=== PATIENT | male | born 1945 | race Caucasian/White ===

== ENCOUNTER → 2020-10-19 18:43 | Outpatient (CLI) | payer MEDICARE, OTHER | END | disposition home or self-care (01) | LOC: D.LABREF 18:43 | PROVIDERS: ATTEND Orthopaedic Surgery | DX: M16.11 Unilateral primary osteoarthritis, right hip (principal) ==

== ENCOUNTER 2021-01-06 08:00 | Outpatient (CLI) | payer MEDICARE, OTHER ==
[~2021-01-06 08:00] MED LIST: MULTI-DAY VITAM1 TAB PO
[2021-01-06] MEDS ORDERED: NAPROXEN SODIU220 M1 PO (13:01)
[2021-01-12 10:53] VITALS: BMI 27.4
== END 2021-01-06 08:01 | disposition home or self-care (01) ==
LOC: D.PAN 08:00
PROVIDERS: ATTEND Orthopaedic Surgery
DX: M16.11 Unilateral primary osteoarthritis, right hip (principal)

== ENCOUNTER 2021-01-12 05:45 | Observation (INO) | payer MEDICARE, OTHER ==
[2021-01-06 12:06] LABS: BILIRUBIN NEGATIVE (NEGATIVE); KETONE NEGATIVE mg/dL (< 1+); NITRITE NEGATIVE (NEGATIVE); UROBILINOGEN NORMAL mg/dL (< 2)
[2021-01-06 12:52] LABS: BASOPHILS 0.3 % (0-2); EOSINOPHILS 2.8 % (0-7); HEMATOCRIT 43.4 % (42.0-54.0); LYMPHOCYTES 16.6 % (15-50); MCH 33.2 pg (26.0-34.0); MCHC 34.6 g/dL (31.0-37.0); MCV 95.8 fL (80.0-100.0); MEAN PLATELET VOLUME 7.3 fL (7.4-10.4); MONOCYTES 8.7 % (2-11); NEUTROPHILS 71.6 % (40-80); PLATELET COUNT 279 10x3/uL (130-400); RBC 4.53 10x6/uL (4.20-6.10); RDW 12.3 % (11.5-14.5); WBC 7.2 10x3/uL (4.8-10.8)
[2021-01-06 13:02] LABS: CALC OSMOLALITY 275 mosm/kg (275-300); CARBON DIOXIDE 27.9 mmol/L (21.0-32.0); CHLORIDE - SERUM 101 mmol/L (98-107); CREATININE - SERUM 0.8 mg/dL (0.6-1.3); GLUCOSE 124 mg/dL (74-106); POTASSIUM - SERUM 3.7 mmol/L (3.5-5.1); SODIUM 137 mmol/L (136-145); UREA NITROGEN 15 mg/dL (7-18); eGFR NON AFRICAN AMERICAN > 90 mL/min (90-120)
[2021-01-06 13:20] LABS: APTT 32.8 SECONDS (22.8-39.4); INR 1.08 (0.85-1.17)
[~2021-01-12] VITALS: Ht 172.7 cm; Wt 81.8 kg
[2021-01-12] VITALS (14 sets, daily range): BP systolic 97–132; BP diastolic 53–81; Ht 172.7 cm; Wt 81.8 kg
[~2021-01-12 05:45] MED LIST changes: +NAPROXEN SODIU220 M1 PO
--- NOTE | 2021-01-12 08:05 | NUR ---
CAUTERY PAD PLACED ON LEFT THIGH. PLASMA BLADE USED ON SETTING 6/8. AQUAMANTYS USED ON SETTING 170. CAUTERY PAD LOT#[id number] EXP. 03/23/2022
--- NOTE | 2021-01-12 10:00 | NUR ---
PATIENT IN BED WITH IV INTACT. NO COMPLAINTS OR SIGNS OF DISTRESS. RIGHT HIP DRESSING CDI. TEDS AND SCDS ON AND WORKING. EDUCATED ABOUT IS. NO PROBLEMS USING IT. VS STABLE. CALL LIGHT WITHIN REACH. FAMILY AT BEDSIDE.
--- NOTE | 2021-01-12 11:46 | OP ---
PATIENT NAME: DEBBIE BURNETT MEDICAL RECORD: [id number] :49 LOCATION:D.MS [id number] ADMISSION DATE:01/12/21 SURGEON: GABRIEL VALADEZ DO DATE OF OPERATION: 01/12/2021 PROCEDURE PERFORMED: Right total hip arthroplasty. PREOPERATIVE DIAGNOSIS: Right hip osteoarthritis. POSTOPERATIVE DIAGNOSIS: Right hip osteoarthritis. INDICATIONS: Mr. Burnett is a 75-year-old male who has had right hip pain for quite some time. He has been dealing with this with injections and nonoperative treatment and he wanted something done surgically. He was aware of the risks including infection, bleeding, fracture, subsidence, leg length discrepancy, continued pain, failure of implants, need for further surgery, fracture, even and blood clots and he signed a consent. SURGEON: Gabriel Valadez DO DESCRIPTION OF PROCEDURE: The patient was taken to the operative suite, laid in the supine position, given general anesthetic and intubated. He was given 2 grams of Ancef, 80 mg of gentamicin and a gram of TXA. He was then positioned on the [place] table. The right hip was prepped and draped in sterile fashion. Timeout was performed, everyone was in agreeance with the correct side, site, patient and procedure. I then began by making an incision over the tensor fasciae sony muscle. Made careful dissection down to the fascia, took the fascia into the muscle belly posteriorly, opened up the rectus interval, took the rectus medially, the tensor fascia sony laterally and then encountered ascending branch of lateral femoral circumflex, coagulated with Aquamantys and tied it off and coagulated again and cut it. I then put Hohmann's around the capsule, the neck, opened up the capsule and tagged the capsule, put them around intracapsularly, Hohmann's around the neck. Got an x-ray to ensure I was going to make a cut in the right place. We then cut the neck, removed the head and put in the Charnley, removed the labrum and pulvinar and then reamed up to a 54, 54 cup fit well, I impacted it in and was very solidly fixed. I then impacted in the liner. I then exposed the femur and used a cookHeadMix cutter to get lateral and the canal finder and then broached up to a 17 stem, 17 stem fit very well, had no toggling and fit very well. I then trialed with a -6 neck. It was equal lengths to the left side on x-ray and then I removed the trials and dislocated the hip, removed the trials, irrigated and put in a 17 stem, it fit very well and had solidly fixed. I then impacted on the -6 dual mobility head and neck and reduced the hip. There were no fracture seen on x-ray and on AP pelvis it was equal lengths to the left side. I then irrigated with a povidone iodine solution and irrigated that out with a liter of normal saline. Then Sarath Mann, certified surgical mate first after he had done that he closed the tensor fascia sony fascia with #1 Vicryl in a [id number] running-locking stitch and then placed a patch of Kerecis over the fascia under the incision site and closed the incision with 2-0 Vicryl in inverted interrupted fashion and 4-0 Monocryl ran on the skin and placed a Prineo glue on the skin, and once it dried, Telfa and Tegaderm. Once we had done that, the patient was then taken to recovery and prior to that given gram of TXA and went to recovery in stable condition. Blood loss was approximately 300 mL. COMPLICATIONS: None. OPERATIVE REPORT [id number] DEBBIE BURNETT TRANSINT:[id number] Voice Confirmation ID: [id number] DOCUMENT ID: [id number] GABRIEL VALADEZ DO at 1146 CC: [id number] DICTATION DATE: 01/12/21856 ECCLESIASTICAL WORKER: 01/12/[address] [facility] [address] [id number]
--- NOTE | 2021-01-12 12:30 | NUR ---
PATIENT ATE REGULAR DIET WITH NO PROBLEMS. IV INTACT. NO COMPLAINTS. VS STABLE. VOIDING IN URINAL WITH NO PROBLEMS. CALL L IGHT WITHIN REACH. FAMILY AT BEDSIDE.
--- NOTE | 2021-01-12 18:10 | MORECARE ---
CASE MANAGEMENT DISCHARGE SUMMARY PATIENT: DEBBIE MOISE UNIT: [id number] ADM DATE: 01/12/21 AGE: 75 : 47 SEX: M ROOM/BED: D.2226 AUTHOR: DELBERT,DOC PHYSICIAN: REFERRING PHYSICIAN: OPAL VALADEZ DO DATE OF SERVICE: 01/12/21 Case Management Discharge Planning Summary DCP REVIEW SUMMARY ANTICIPATED D/C DATE: EXPECTED LOS : CASE STATUS: DCP Initiated INITIAL REVIEW: 01/12/2021 INITIAL REVIEWER: Stanislav Ruiz FINAL DISCHARGE DISPOSITION: : FINAL REVIEWER: FINAL REVIEW DATE: DCP Focus Questions & Answers QUESTION: ANSWER : PATIENT: DEBBIE MOISE ENCOUNTER: [id number] MEDICAL RECORD#: [id number] ADMISSION DATE: 01/12/2021 DISCHARGE DATE: ATTENDING MD: OPAL MOISE : AGE: 75 MARITAL STATUS: U DC PLAN ID: [id number] FACILITY: [facility] PRINTED ON: 01/12/21 18:10 CT All edits/amendments must be made on the electronic document DICTATION DATE: 01/12/211809 POLICY INTERN: DM 01/12/211809 RPT#: [id number] DC DATE: STATUS: ADM IN [facility] [address] [place] [address] END OF REPORT
--- NOTE | 2021-01-12 18:20 | MORECARE ---
CASE MANAGEMENT DISCHARGE SUMMARY PATIENT: DEBBIE BURNETT UNIT: [id number] ADM DATE: 01/12/21 AGE: 75 : 47 SEX: M ROOM/BED: D.2226 AUTHOR: CAL MANDUJANO PHYSICIAN: REFERRING PHYSICIAN: OPAL VALADEZ DO DATE OF SERVICE: 01/12/21 Case Management Discharge Planning Summary COMMENTS ENTERED DATE: 01/12/21 18:16 CT COMMENT TYPE: Discharge Planning REVIEWER: Stanislav Ruiz CM met with patient to complete DC plan and to evaluate needs. Patient lives independently with his spouse, Tavon Burnett, . Patient stated that his home is safe and has electricity and running water. Patient stated he manages to enter his home without difficulty. Patient stated that he has a walker, BSC, and cane at home. Patient stated that he has no problems paying for medications and he fills his medications at [facility] on [facility]. Patient stated that his primary care physician is Dr. Olivas at the [place]. At discharge, the patient plans to return home and feels this is a safe discharge. CM discussed availability of home health, rehab services, and medical equipment. Patient declined HHS, SNF, IPR, and DME but would like Outpatient PT with [facility]. MINA signed and placed in chart. Clinical Documents faxed. Patient voiced no other needs at this time and is satisfied with DC plan. Transportation provider at discharge will be with his spouse, HSU delivered, explained, signed by the patient, and placed in chart. Copy of form also left with the patient. CM will continue to follow and will assist as needed with dc plans/needs. DCP REVIEW SUMMARY ANTICIPATED D/C DATE: EXPECTED LOS : CASE STATUS: DCP Initiated INITIAL REVIEW: 01/12/2021 INITIAL REVIEWER: Stanislav Ruiz FINAL DISCHARGE DISPOSITION: : FINAL REVIEWER: FINAL REVIEW DATE: DCP Focus Questions & Answers DCP Evaluation QUESTION: ANSWER Patient's ability to cope with chronic illness : d. No chronic illness Patient gives permission to discuss discharge plans with: (name, relationship and number) : spouse, Tavon Burnett, Patient and/or caregiver agree upon recommended discharge plan? : Yes Family / Caregiver's ability to cope with chronic illness: : a. Adequate (ability to meet patient's medical needs, ensures patient attends medical appts.) Patient's current cognitive status: : *Oriented to person, place, situation, time and present Family / Caregiver's ability to cope with chronic illness: : a. Adequate (ability to meet patient's medical needs, ensures patient attends medical appts.) Physical Status: : Independent with ADL's Does the patient have the ability to pay for or attain post discharge needs / services? : Yes Functional screen assessment: : Basic needs can adequately be met by self Living Arrangements: : Home with Spouse/Significant Other Equipment needed for post hospitalization: : None Is there a likelihood that the patient will require additional services to return to the preadmission environment? : Yes Baseline cognitive status: : *Oriented to person, place, situation, time and present Patient with capacity for self-care or can be cared for in same environment as prior to hospitalization? : Yes Physical environment modification needed / anticipated for discharge: : No Medication Management: : Patient states can read and understand medication labels Medication Management: : Patient states can afford medications Pharmacy name(s): : [facility] on [facility] Does Patient have transportation to get home and to follow-up medical appointments when discharged from the hospital? : Yes Would patient like to participate in any Care Coordination programs (if applicable): : Not applicable Does the patient have electricity at home? : Yes Does the patient have running water in their house? : Yes Equipment in use: : Walker - Rolling Equipment in use: : Cane - Single Leg Equipment in use: : Bedside Commode Mental health screen: : No mental health history DCP Re-evaluation QUESTION: ANSWER Would patient like to participate in any Care Coordination programs (if applicable): : Not applicable PATIENT: DEBBIE BURNETT ENCOUNTER: [id number] MEDICAL RECORD#: [id number] ADMISSION DATE: 01/12/2021 DISCHARGE DATE: ATTENDING MD: OPAL MOISE : AGE: 75 MARITAL STATUS: U DC PLAN ID: [id number] FACILITY: [facility] PRINTED ON: 01/12/21 18:20 CT All edits/amendments must be made on the electronic document DICTATION DATE: 01/12/211819 PROFESSOR OF SOCIAL WORK: SHAYNA 01/12/211819 RPT#: [id number] DC DATE: STATUS: ADM IN [facility] [address] [place] [address] END OF REPORT
--- NOTE | 2021-01-12 18:50 | NUR ---
PATIENT IN BED WITH IV INTACT. NO COMPLAINTS OR SIGNS OF DISTRESS. BSCDS ON AND WORKING. DRESSING TO RIGHT HIP CLEAN AND DRY. CALL L IGHT WITHIN REACH.
[2021-01-13 03:53] VITALS: BP 119/67
[2021-01-13 06:17] LABS: BASOPHILS 0.1 % (0-2); EOSINOPHILS 0.1 % (0-7); HEMATOCRIT 37.4 % (42.0-54.0); HEMOGLOBIN 12.9 g/dL (13.5-17.5); LYMPHOCYTES 8.1 % (15-50); MCHC 34.5 g/dL (31.0-37.0); MCV 95.6 fL (80.0-100.0); MEAN PLATELET VOLUME 7.3 fL (7.4-10.4); MONOCYTES 8.4 % (2-11); NEUTROPHILS 83.3 % (40-80); PLATELET COUNT 285 10x3/uL (130-400); RBC 3.91 10x6/uL (4.20-6.10); RDW 12.1 % (11.5-14.5); WBC 10.9 10x3/uL (4.8-10.8)
[2021-01-13 06:36] LABS: ALBUMIN 3.1 g/dL (3.4-5.0); ALKALINE PHOSPHATASE 93 U/L (30-120); ALT (SGPT) 34 U/L (10-68); BILIRUBIN - TOTAL 0.38 mg/dL (0.2-1.3); CALC OSMOLALITY 280 mosm/kg (275-300); CALCIUM 8.1 mg/dL (8.5-10.1); CARBON DIOXIDE 26.8 mmol/L (21.0-32.0); CHLORIDE - SERUM 105 mmol/L (98-107); GLUCOSE 128 mg/dL (74-106); POTASSIUM - SERUM 4.4 mmol/L (3.5-5.1); PROTEIN - SERUM 6.4 g/dL (6.4-8.2); SODIUM 140 mmol/L (136-145); UREA NITROGEN 12 mg/dL (7-18); eGFR NON AFRICAN AMERICAN 78 mL/min (90-120)
[2021-01-13] MEDS ORDERED: ELIQUIS2.5 MG PO (07:04)
[2021-01-13] MEDS ORDERED: HYDROCODON-ACE1 EA10 PO (07:05)
[2021-01-13 07:41] VITALS: BP 106/73
[2021-01-13 11:03] VITALS: BP 15/58
--- NOTE | 2021-01-13 16:21 | NUR ---
I have reviewed this patient and I concur with the Shift Assessment completed by the Licensed Practical Nurse today this shift.
--- NOTE | 2021-01-13 16:31 | MORECARE ---
CASE MANAGEMENT DISCHARGE SUMMARY PATIENT: DEBBIE BURNETT UNIT: [id number] ADM DATE: 01/12/21 AGE: 75 : 47 SEX: M ROOM/BED: D.2226 AUTHOR: CAL MANDUJANO PHYSICIAN: REFERRING PHYSICIAN: OPAL VALADEZ DO DATE OF SERVICE: 01/13/21 Case Management Discharge Planning Summary COMMENTS ENTERED DATE: 01/12/21 18:16 CT COMMENT TYPE: Discharge Planning REVIEWER: Stanislav Ruiz CM met with patient to complete DC plan and to evaluate needs. Patient lives independently with his spouse, Tavon Burnett, . Patient stated that his home is safe and has electricity and running water. Patient stated he manages to enter his home without difficulty. Patient stated that he has a walker, BSC, and cane at home. Patient stated that he has no problems paying for medications and he fills his medications at [facility] on [facility]. Patient stated that his primary care physician is Dr. Olivas at the [place]. At discharge, the patient plans to return home and feels this is a safe discharge. CM discussed availability of home health, rehab services, and medical equipment. Patient declined HHS, SNF, IPR, and DME but would like Outpatient PT with [facility] PT. MINA signed and placed in chart. Clinical Documents faxed. Patient voiced no other needs at this time and is satisfied with DC plan. Transportation provider at discharge will be with his spouse, HSU delivered, explained, signed by the patient, and placed in chart. Copy of form also left with the patient. CM will continue to follow and will assist as needed with dc plans/needs. DCP REVIEW SUMMARY ANTICIPATED D/C DATE: EXPECTED LOS : CASE STATUS: DCP Initiated INITIAL REVIEW: 01/12/2021 INITIAL REVIEWER: Stanislav Ruiz FINAL DISCHARGE DISPOSITION: : FINAL REVIEWER: FINAL REVIEW DATE: DCP Focus Questions & Answers DCP Evaluation QUESTION: ANSWER Patient's ability to cope with chronic illness : d. No chronic illness Patient gives permission to discuss discharge plans with: (name, relationship and number) : spouse, Tavon Burnett, Patient and/or caregiver agree upon recommended discharge plan? : Yes Family / Caregiver's ability to cope with chronic illness: : a. Adequate (ability to meet patient's medical needs, ensures patient attends medical appts.) Patient's current cognitive status: : *Oriented to person, place, situation, time and present Family / Caregiver's ability to cope with chronic illness: : a. Adequate (ability to meet patient's medical needs, ensures patient attends medical appts.) Physical Status: : Independent with ADL's Does the patient have the ability to pay for or attain post discharge needs / services? : Yes Functional screen assessment: : Basic needs can adequately be met by self Living Arrangements: : Home with Spouse/Significant Other Equipment needed for post hospitalization: : None Is there a likelihood that the patient will require additional services to return to the preadmission environment? : Yes Baseline cognitive status: : *Oriented to person, place, situation, time and present Patient with capacity for self-care or can be cared for in same environment as prior to hospitalization? : Yes Physical environment modification needed / anticipated for discharge: : No Medication Management: : Patient states can read and understand medication labels Medication Management: : Patient states can afford medications Pharmacy name(s): : [facility] on [facility] Does Patient have transportation to get home and to follow-up medical appointments when discharged from the hospital? : Yes Would patient like to participate in any Care Coordination programs (if applicable): : Not applicable Does the patient have electricity at home? : Yes Does the patient have running water in their house? : Yes Equipment in use: : Walker - Rolling Equipment in use: : Cane - Single Leg Equipment in use: : Bedside Commode Mental health screen: : No mental health history DCP Re-evaluation QUESTION: ANSWER Would patient like to participate in any Care Coordination programs (if applicable): : Not applicable PATIENT: DEBBIE BURNETT ENCOUNTER: [id number] MEDICAL RECORD#: [id number] ADMISSION DATE: 01/12/2021 DISCHARGE DATE: 01/13/2021 ATTENDING MD: OPAL MOISE : AGE: 75 MARITAL STATUS: U DC PLAN ID: [id number] FACILITY: [facility] PRINTED ON: 01/13/21 16:31 CT All edits/amendments must be made on the electronic document DICTATION DATE: 01/13/211630 INCIDENT RESPONSE ENGINEER: SHAYNA 01/13/21 1631 RPT#: [id number] DC DATE:01/13/21 STATUS: DIS IN [facility] [address] [place] [address] END OF REPORT
--- NOTE | 2021-01-14 07:58 | MORECARE ---
CASE MANAGEMENT DISCHARGE SUMMARY PATIENT: DEBBIE BURNETT UNIT: [id number] ADM DATE: 01/12/21 AGE: 75 : 47 SEX: M ROOM/BED: D.2226 AUTHOR: CAL MANDUJANO PHYSICIAN: REFERRING PHYSICIAN: OPAL VALADEZ DO DATE OF SERVICE: 01/14/21 Case Management Discharge Planning Summary COMMENTS ENTERED DATE: 01/12/21 18:16 CT COMMENT TYPE: Discharge Planning REVIEWER: Stanislav Ruiz CM met with patient to complete DC plan and to evaluate needs. Patient lives independently with his spouse, Tavon Burnett, . Patient stated that his home is safe and has electricity and running water. Patient stated he manages to enter his home without difficulty. Patient stated that he has a walker, BSC, and cane at home. Patient stated that he has no problems paying for medications and he fills his medications at [facility] on [facility]. Patient stated that his primary care physician is Dr. Olivas at the [place]. At discharge, the patient plans to return home and feels this is a safe discharge. CM discussed availability of home health, rehab services, and medical equipment. Patient declined HHS, SNF, IPR, and DME but would like Outpatient PT with [facility] OP PT. MINA signed and placed in chart. Clinical Documents faxed. Patient voiced no other needs at this time and is satisfied with DC plan. Transportation provider at discharge will be with his spouse, HSU delivered, explained, signed by the patient, and placed in chart. Copy of form also left with the patient. CM will continue to follow and will assist as needed with dc plans/needs. DCP REVIEW SUMMARY ANTICIPATED D/C DATE: EXPECTED LOS : CASE STATUS: DCP Initiated INITIAL REVIEW: 01/12/2021 INITIAL REVIEWER: Stanislav Ruiz FINAL DISCHARGE DISPOSITION: : FINAL REVIEWER: FINAL REVIEW DATE: DCP Focus Questions & Answers DCP Evaluation QUESTION: ANSWER Patient's ability to cope with chronic illness : d. No chronic illness Patient gives permission to discuss discharge plans with: (name, relationship and number) : spouse, Tavon Burnett, Patient and/or caregiver agree upon recommended discharge plan? : Yes Family / Caregiver's ability to cope with chronic illness: : a. Adequate (ability to meet patient's medical needs, ensures patient attends medical appts.) Patient's current cognitive status: : *Oriented to person, place, situation, time and present Family / Caregiver's ability to cope with chronic illness: : a. Adequate (ability to meet patient's medical needs, ensures patient attends medical appts.) Physical Status: : Independent with ADL's Does the patient have the ability to pay for or attain post discharge needs / services? : Yes Functional screen assessment: : Basic needs can adequately be met by self Living Arrangements: : Home with Spouse/Significant Other Equipment needed for post hospitalization: : None Is there a likelihood that the patient will require additional services to return to the preadmission environment? : Yes Baseline cognitive status: : *Oriented to person, place, situation, time and present Patient with capacity for self-care or can be cared for in same environment as prior to hospitalization? : Yes Physical environment modification needed / anticipated for discharge: : No Medication Management: : Patient states can read and understand medication labels Medication Management: : Patient states can afford medications Pharmacy name(s): : [facility] Does Patient have transportation to get home and to follow-up medical appointments when discharged from the hospital? : Yes Would patient like to participate in any Care Coordination programs (if applicable): : Not applicable Does the patient have electricity at home? : Yes Does the patient have running water in their house? : Yes Equipment in use: : Walker - Rolling Equipment in use: : Cane - Single Leg Equipment in use: : Bedside Commode Mental health screen: : No mental health history DCP Re-evaluation QUESTION: ANSWER Would patient like to participate in any Care Coordination programs (if applicable): : Not applicable PATIENT: DEBBIE BURNETT ENCOUNTER: [id number] MEDICAL RECORD#: [id number] ADMISSION DATE: 01/12/2021 DISCHARGE DATE: 01/13/2021 ATTENDING MD: OPAL MOISE : AGE: 75 MARITAL STATUS: U DC PLAN ID: [id number] FACILITY: [facility] PRINTED ON: 01/14/21 7:58 CT All edits/amendments must be made on the electronic document DICTATION DATE: 01/14/21757 BLACKENER: SHAYNA 01/14/21757 RPT#: [id number] DC DATE:01/13/21 STATUS: DIS IN [facility] [address] [address] [place] [address] END OF REPORT
== END 2021-01-13 16:24 | disposition home or self-care (01) ==
LOC: D.OPS 05:45 → EDSTATUS 08:30 → D.MS 08:55 → OBSVTIME 09:23 → D.OPS 09:23 → D.MS 09:23
PROVIDERS: Emergency Medicine; ADMIT Orthopaedic Surgery; ATTEND Orthopaedic Surgery
DX: M16.11 Unilateral primary osteoarthritis, right hip (principal); N40.0 Benign prostatic hyperplasia without lower urinary tract symptoms; Z87.891 Personal history of nicotine dependence; H91.90 Unspecified hearing loss, unspecified ear